=== PATIENT | female | born 1945 | race Caucasian/White ===

== ENCOUNTER 2017-10-24 08:08 | Emergency (ER) | payer MEDICARE ==
[~2017-10-24] VITALS: Ht 167.6 cm; Wt 77.3 kg
[~2017-10-24 08:08] MED LIST: ATENOLOL50 MG PO; HYDROCHLORO25 MG/TAB PO; LEVOTHYROXIN75 MCG PO; LISINOP/HCTZ1 TA2 PO; LISINOPRIL/HYDR1 TA1 PO; LISINOPRIL20 MG PO; LO-DOSE ASA81 MG PO; LORATADINE10 M1 PO; PROVENTIL HFA IN; SIMVASTATIN10 MG PO; TESSALON PER100 MG PO; ZITHROMAX250 MG PO; ZOCOR10 MG PO
[2017-10-24] MEDS ORDERED: LOSARTAN POTASS1 TA1 PO (08:23)
[2017-10-24] MEDS ORDERED: CARVEDILOL6.25 MG PO (08:23)
[2017-10-24 08:44] LABS: IMMATURE GRANULOCYTES 0.6 % (0.0-1.0); MEAN CELL VOLUME 95.8 fL CALC (80.0-100.0); MEAN CORPUSCULAR HGB 33.6 pG CALC (26.0-32.0); NEUT# 14.16 thou/uL (2.00-7.15); RED BLOOD COUNT 5.9 mill/uL (4.20-5.60); RED CELL DISTRI WIDTH 13.6 % (11.5-15.5)
[2017-10-24 08:46] LABS: URINE BLOOD DIPSTICK LARGE (NEGATIVE); URINE GLUCOSE - DIPSTICK 100 mg/dL (NEGATIVE); URINE KETONE NEGATIVE (NEGATIVE); URINE LEUK ESTERASE NEGATIVE (NEGATIVE); URINE NITRITE - DIPSTICK NEGATIVE (Negative); URINE PROTEIN - DIPSTICK >=300 mg/dL (NEG-TRACE); URINE UROBILINOGEN - DIPSTICK 0.2 E.U./dL (0.2)
[2017-10-24 08:58] LABS: URINE BILIRUBIN - DIPSTICK SMALL (NEGATIVE); URINE CLARITY SL CLOUDY; URINE COLOR DK. YELLOW
[2017-10-24 08:59] LABS: URINE EPITHELIAL CELLS FEW EPI/hpf (0-FEW)
[2017-10-24 09:02] LABS: HEMATOCRIT 56.5 % (37.0-47.0); HEMOGLOBIN 19.8 g/dl (12.0-16.0)
[2017-10-24 09:14] LABS: CREATININE 1.5 mg/dL (0.5-1.0); POTASSIUM 3.9 mmol/l (3.5-5.1)
[2017-10-24 09:21] LABS: ALBUMIN 5.1 g/dL (3.2-5.0); TOTAL PROTEIN 9.4 g/dL (6.3-8.2)
[2017-10-24 14:57] VITALS: BP 180/76
[2017-10-24] MEDS ORDERED: ONDANSETRON4 MG PO (14:59)
== END 2017-10-24 15:08 | disposition home or self-care (01) ==
LOC: ED 08:08
PROVIDERS: Family Medicine
DX: E80.6 Other disorders of bilirubin metabolism (principal); R10.32 Left lower quadrant pain; R10.31 Right lower quadrant pain; R11.2 Nausea with vomiting, unspecified; F17.210 Nicotine dependence, cigarettes, uncomplicated; R10.11 Right upper quadrant pain; R10.13 Epigastric pain